=== PATIENT | female | born 1980 | race Caucasian/White ===

== ENCOUNTER 2020-05-07 12:27 | Emergency (ER) | payer OTHER ==
--- NOTE | 2020-05-07 13:19 | ED Physician Documentation ---
PD HPI LOWER EXT INJURY - Stated complaint Stated Complaint: ANKLE PX/SWELLING - Chief complaint Chief Complaint: Ext Problem - Additional information Additional information: 39-year-old female presents to the emergency department for evaluation of bilateral medial ankle pain. She reports that 2 days ago she was walking and inversion injury occurred in both of her ankles. Since then she has had pain with weightbearing left greater than right on the medial side of both ankles. No history of previous injury. She has been applying Brandon wrap and taking ibuprofen with mild relief of pain. Review of Systems Constitutional: reports: Reviewed and negative Eyes: reports: Reviewed and negative Nose: reports: Reviewed and negative Cardiac: reports: Reviewed and negative Respiratory: reports: Reviewed and negative GI: reports: Reviewed and negative : reports: Reviewed and negative Skin: reports: Reviewed and negative Musculoskeletal: reports: Joint pain (bilateral ankles) Neurologic: denies: Generalized weakness, Numbness, Difficulty speaking, Near syncope, Syncope, Seizure, Confused PD PAST MEDICAL HISTORY - Past Medical History Past Medical History: Yes Cardiovascular: None Respiratory: None Neuro: None Endocrine/Autoimmune: None GI: None INSURANCE HEALTHCARE CONSULTANT: None : None HEENT: Chronic vision loss Psych: None Musculoskeletal: None Derm: None - Past Surgical History Past Surgical History: Yes /INSURANCE HEALTHCARE CONSULTANT: Tubal ligation - Present Medications Home Medications: Ambulatory Orders Medication Instructions Recorded Confirmed Mirtazapine [Remeron] 15 mg PO 05/07/20 Sertraline [Zoloft] 50 mg PO 05/07/20 - Allergies Allergies/Adverse Reactions: Allergies Allergy/AdvReac Type Severity Reaction Status Date / Time No Known Drug Allergies Allergy Verified 05/07/20 12:34 - Social History Does the pt smoke?: No Smoking Status: Never smoker Does the pt drink ETOH?: No Does the pt have substance abuse?: No - Immunizations Immunizations are current?: Yes - POLST Patient has POLST: No PD ED PE EXPANDED - Extremities Extremities: Right ankle (pain medial joint, normal gair right foot. full ROM. no swelling), Left ankle (tenderness medial joint and pain with weight bearing. No reduced ROM. bears partial weight) Results - Vitals Vitals: Vital Signs - 24 hr 05/07/20 12:28 Temperature 36.9 C Heart Rate 71 Respiratory 16 Rate Blood Pressure 147/55 H O2 Saturation 98 Oxygen O2 Source Room air - Rads (name of study) right ankle Radiology: Final report received (No acute fracture or dislocation) left ankle Radiology: Final report received (No acute fracture or dislocation) PD MEDICAL DECISION MAKING - ED course Complexity details: re-evaluated patient, considered differential, d/w patient ED course: 39-year-old female presents the emergency department for evaluation of bilateral medial ankle pain sustained 2 days ago when she inverted both of her ankles. No history of previous injury. She has left greater than right ankle pain. X- ray of both ankles shows no acute osseous abnormality. Patient is able to bear full weight on the right foot as well as nearly full weight on the left. She remains in an Brandon wrap. I will recommend crutches for suspected ankle sprain and ice as well as NSAID at home. Emergent return precautions discussed Departure - Departure Disposition: 01 Home, Self Care Clinical Impression: Bilateral ankle joint pain Condition: Stable Record reviewed to determine appropriate education?: Yes Instructions: Ankle Sprain Comments: The x-rays of both your ankles are negative. We do not see any fractures or dislocations. You have most likely sprained both the ankles though the left is worse than the right. I do recommend that you continue to wear the Brandon wrap when you are out of bed during the day. Use the crutches to remain as non- weightbearing on the left ankle as you can. Continue take Tylenol or ibuprofen at home for pain.
--- NOTE | 2020-05-07 13:46 | XRAY Report ---
PROCEDURE: Ankle 3 View LT INDICATIONS: inversion injury bilaterally. pain medially TECHNIQUE: 3 views of the ankle were acquired. COMPARISON: None FINDINGS: Bones: No fractures or dislocations. Ankle mortise is normally aligned. No suspicious bony lesions . Soft tissues: No tibiotalar joint effusion. Achilles tendon appears normal. IMPRESSION: No fracture. No osseous lesion. If there is continued clinical concern for pathology, then repeat jimmie in film radiographs (7-10 days) or advanced imaging (CT, MR, bone scan) should be considered for furt her evaluation. Reviewed by: Azra Joaquin MD, PhD on 05/07/2020 1:45 PM PST Approved by: Azra Joaquin MD, PhD on 05/07/2020 1:45 PM PST Station ID: [id number]
--- NOTE | 2020-05-07 13:46 | XRAY Report ---
PROCEDURE: Ankle 3 View RT INDICATIONS: inversion injury bilaterally; pain medially TECHNIQUE: 3 views of the ankle were acquired. COMPARISON: None FINDINGS: Bones: No fractures or dislocations. Ankle mortise is normally aligned. No suspicious bony lesions . Soft tissues: No tibiotalar joint effusion. Achilles tendon appears normal. IMPRESSION: No fracture. No osseous lesion. If there is continued clinical concern for pathology, then repeat jimmie in film radiographs (7-10 days) or advanced imaging (CT, MR, bone scan) should be considered for furt her evaluation. Reviewed by: Azra Joaquin MD, PhD on 05/07/2020 1:44 PM PST Approved by: Azra Joaquin MD, PhD on 05/07/2020 1:44 PM PST Station ID: [id number]
[2020-05-07 14:42] VITALS: BP 122/66
== END 2020-05-07 14:47 | disposition home or self-care (01) ==
LOC: ED 12:27
DX: M25.572 Pain in left ankle and joints of left foot (principal); M25.571 Pain in right ankle and joints of right foot
CPT/HCPCS: 99283